=== PATIENT | male | born 1995 | race Caucasian/White ===

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

== ENCOUNTER 2019-03-21 12:31 | Emergency (ER) | payer OTHER ==
[~2019-03-21] VITALS: Ht 182.9 cm; Wt 78.0 kg
[2019-03-21 12:51] VITALS: BP 141/89
--- NOTE | 2019-03-21 12:54 | NUR ---
PT TAKEN TO BED 5.
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
--- NOTE | 2019-03-21 14:19 | NUR ---
PT TO XRAY VIA WHEELCHAIR.
[2019-03-21 15:16] VITALS: BP 134/78
--- NOTE | 2019-03-21 15:16 | NUR ---
Patient discharged with v/s stable. Written and verbal after care instructions given and explained. Patient verbalized understanding. Ambulatory with steady gait. All questions addressed prior to discharge. Advised to follow up with PMD.
== END 2019-03-21 15:16 | disposition home or self-care (01) ==
LOC: MED 12:31
DX: S00.33XA Contusion of nose, initial encounter (principal); S80.212A Abrasion, left knee, initial encounter; X58.XXXA Exposure to other specified factors, initial encounter; Y93.89 Activity, other specified; Y92.89 Other specified places as the place of occurrence of the external cause; Y99.8 Other external cause status
CPT/HCPCS: 70160; 99283

== ENCOUNTER 2019-07-17 17:36 | Emergency (ER) | payer OTHER ==
[~2019-07-17] VITALS: Ht 182.9 cm; Wt 82.8 kg
[2019-07-17 17:47] VITALS: BP 137/61
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
--- NOTE | 2019-07-17 18:48 | NUR ---
XRAY AT BEDSIDE
--- NOTE | 2019-07-17 18:57 | NUR ---
PT AMBULATIVE TO RESTROOM FOR URINE SAMPLE
--- NOTE | 2019-07-17 19:15 | NUR ---
DR HOUSE AT BEDSIDE
--- NOTE | 2019-07-17 19:15 | NUR ---
BEDSIDE REPORT RECIEVED FROM TEQUILA WARNER. ASSUMED CARE AT THIS TIME.
--- NOTE | 2019-07-17 19:15 | NUR ---
REPORT GIVEN TO ONOFRE MANDEL
--- NOTE | 2019-07-17 19:25 | NUR ---
PT SEATED UPRIGHT. PT HR 47, PT REPORTS THIS BASELINE AND HR HAS DROPPED TO LOW 30S WITH NO COMPLICATIONS. WILL CONTINUE TO MONITOR.
[2019-07-17 19:45] LABS: BASOPHILS # (AUTO) 0.1 K/uL (0.00-0.22); BASOPHILS % (AUTO) 0.8 % (0.0-2.0); EOSINOPHILS # (AUTO) 0.2 K/uL (0-0.4); EOSINOPHILS % (AUTO) 3.5 % (0.0-4.0); HEMOGLOBIN 15.6 g/dL (12.0-18.0); LYMPHOCYTES # (AUTO) 1.7 K/uL (2.0-11.5); LYMPHOCYTES % (AUTO) 24.3 % (20.5-51.1); MEAN CORPUSCULAR HEMOGLOBIN 30 pg (27-31); MEAN CORPUSCULAR HGB CONC 33 g/dL (33-37); MEAN CORPUSCULAR VOLUME 91.6 fL (80-94); MONOCYTES # (AUTO) 0.7 K/uL (0.8-1.0); MONOCYTES % (AUTO) 10.3 % (1.7-9.3); NEUTROPHILS # (AUTO) 4.2 K/uL (1.8-7.7); NEUTROPHILS % (AUTO) 61.1 % (42.2-75.2); PLATELET COUNT (AUTO) 188 K/uL (140-450); RED BLOOD CELL COUNT(AUTO) 5.13 MIL/uL (4.20-6.10); RED CELL DISTRIBUTION WIDTH 13.8 % (11.6-13.7); WHITE BLOOD COUNT (AUTO) 6.8 K/uL (4.8-10.8)
[2019-07-17 19:51] LABS: BARBITURATE, URINE NEG. ng/ml (NEG <=200); BENZODIAZEPINE, URINE NEG. ng/mL (NEG <=200); CANNABINOID, URINE NEG. ng/mL (NEG <=50); COCAINE, URINE POS. ng/mL (NEG <=300); OPIATE, URINE NEG. ng/mL (NEG <=2000); PHENCYCLIDINE SCREEN,URINE NEG. ng/mL (NEG <=25)
[2019-07-17 20:18] LABS: ANION GAP 10.4 (8-16); CARBON DIOXIDE 30.5 mmol/L (21-32); CREATININE 1.3 mg/dL (0.7-1.3); POTASSIUM 3.9 mmol/L (3.5-5.1)
[2019-07-17 20:33] LABS: ALBUMIN 3.9 g/dL (3.4-5.0); TOTAL BILIRUBIN 0.7 mg/dL (0.0-1.0)
--- NOTE | 2019-07-17 20:55 | NUR ---
ALL RESULTS BACK AND NOTED BY ERMD AND FOR D/C
[2019-07-17 21:10] VITALS: BP 120/78
== END 2019-07-17 21:10 | disposition home or self-care (01) ==
LOC: MED 17:36
DX: R00.2 Palpitations (principal); F14.10 Cocaine abuse, uncomplicated
CPT/HCPCS: 36415; 71045; 80053; 80305; 84443; 84484; 85025; 93005; 99284; Q0092

== ENCOUNTER 2022-10-05 11:39 | Emergency (ER) | payer SELFPAY ==
[~2022-10-05] VITALS: Ht 182.9 cm; Wt 84.8 kg
[2022-10-05 11:47] VITALS: BP 124/57
--- NOTE | 2022-10-05 12:12 | NUR ---
WOUND TO L POSTERIOR SHOULDER IRRIGATED WITH BETADINE X NORMAL SALINE.
--- NOTE | 2022-10-05 12:18 | NUR ---
STERI STRIPS APPLIED
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
[2022-10-05] MEDS ORDERED: IBUP-2213 PO (12:38)
[2022-10-05] MEDS ORDERED: CEPH-588 PO (12:38)
--- NOTE | 2022-10-05 12:45 | NUR ---
Patient discharged with v/s stable. Written and verbal after care instructions ABOUT STERI TAPE WOUND CARE AND LAC CARE given and explained. Patient alert, oriented and verbalized understanding of instructions. Ambulatory with steady gait. All questions addressed prior to discharge. ID band removed. Patient advised to follow up with PMD. Rx of KEFLEX, MOTRIN given. Patient educated on indication of medication including possible reaction and side effects. Opportunity to ask questions provided and answered.
== END 2022-10-05 12:44 | disposition home or self-care (01) ==
LOC: MED 11:39
DX: S41.012A Laceration without foreign body of left shoulder, initial encounter (principal); W17.89XA Other fall from one level to another, initial encounter; Y93.89 Activity, other specified; Y92.89 Other specified places as the place of occurrence of the external cause; Y99.8 Other external cause status
CPT/HCPCS: 90471; 90715; 99283